=== PATIENT | male | born 1955 | race American Indian/Alaskan Native ===

== ENCOUNTER 2021-05-02 11:02 | Emergency (ER) | payer OTHER ==
--- NOTE | 2021-05-02 13:24 | Emergency Department Report ---
Minor Respiratory - HPI Chief Complaint: Upper Respiratory Infection Stated Complaint: COLD SYMPTOMS Duration: Today Severity: mild Minor Respiratory: Yes Rhinorrhea, Yes Cough, No Sore Throat, No Sick Contacts, No Hemoptysis, No Chest Pain, No Shortness of Breath, No Fever Other History: 65-year-old -[place] male with a past medical history of cardiac stents triple bypass asthma hypertension hypercholesterolemia and diabetes presents to the emergency room reporting chest congestion and cough that started this morning. Patient states has been using and his inhaler. He reports he is not vaccinated for Covid or for the flu. Denies any fever no chills mild body aches. ED Review of Systems ROS: Stated complaint: COLD SYMPTOMS Other details as noted in HPI Comment: All other systems reviewed and negative ED Past Medical Hx - Medications Home Medications: Home Medications Medication Instructions Recorded Confirmed Last Taken Type Cetirizine HCl [Zyrtec 10mg tab] 10 mg PO QDAY #30 tablet 05/02/21 Unknown Rx predniSONE [Deltasone] 20 mg PO QDAY #3 tab 05/02/21 Unknown Rx Minor Respiratory Exam - Exam General: Vital signs noted. No distress. Alert and acting appropriately. HEENT: Yes Moist Mucous Membranes, No Pharyngeal Erythema, No Pharyngeal Exudates, No Rhinorrhea, No Conjuctival Injection, No Frontal Tenderness, No Maxillary Tenderness Neck: Yes Supple, No Adenopathy Lungs: Yes Good Air Exchange, Yes Cough, No Wheezes, No Ronchi, No Stridor, No Labored Respirations, No Retractions, No Use of Accessory Muscles, No Other Abnormal Lung Sounds Heart: Yes Regular, No Murmur Abdomen: Yes Normal Bowel Sounds, No Tenderness, No Peritoneal Signs Skin: No Rash, No Edema Neurologic: Alert and oriented, no deficits. Musculoskeletal: Unremarkable. ED Course Vital Signs 05/02/21 11:03 Temperature 98.6 F Pulse Rate 92 H Respiratory 16 Rate Blood Pressure 171/94 [Left] O2 Sat by Pulse 98 Oximetry ED Medical Decision Making - Medical Decision Making 65-year-old -[place] male with a past medical history of cardiac stents triple bypass asthma hypertension hypercholesterolemia and diabetes presents to the emergency room reporting chest congestion and cough that started this morning. Patient states has been using and his inhaler. He reports he is not vaccinated for Covid or for the flu. Denies any fever no chills mild body aches. Patient has had complete and normal lung exam. Does have some postnasal drip in the back of his throat. I discussed with patient is most likely due to postnasal drip will recommend Zyrtec's 10 mg daily for 10 days. Also wrote a prescription for prednisone 20 mg by mouth daily for 3 days. I did warn patient that his blood sugar may elevate while taking medication. I instructed patient to be sure to check his blood sugars take his medications as prescribed increase his water intake. Critical care attestation.: If time is entered above; I have spent that time in minutes in the direct care of this critically ill patient, excluding procedure time. ED Disposition Clinical Impression: Asthma Disposition: 01 HOME / SELF CARE / HOMELESS Is pt being admited?: No Does the pt Need Aspirin: No Condition: Stable Instructions: Asthma (ED), Asthma, Adult, [id number] Additional Instructions: Please take medications as prescribed. Understand that prednisone may cause your blood sugars to spike. Be sure to check your blood sugars take your blood sugar medication as prescribed. Increase your water intake. Follow-up with your primary care provider in the next 3 to 5 days if symptoms persist Prescriptions: predniSONE [Deltasone] 20 mg PO QDAY #3 tab Cetirizine HCl [Zyrtec 10mg tab] 10 mg PO QDAY #30 tablet Referrals: Your, primary care provider [Other] - 3-5 Days Your, primary care provider [Other] - 3-5 Days Time of Disposition: 13:22
[2021-05-02 14:20] VITALS: BP 136/88
== END 2021-05-02 14:17 | disposition home or self-care (01) ==
LOC: ED 11:02
DX: J45.909 Unspecified asthma, uncomplicated (principal)
CPT/HCPCS: 99283